=== PATIENT | female | born 1985 | race Caucasian/White ===

== ENCOUNTER → 2021-03-10 08:06 | Outpatient (CLI) | payer OTHER, SELFPAY ==
[2021-03-10 19:22] LABS: SARS-CoV-2 RNA PCR Negative
== END ==
PROVIDERS: PCP Family Medicine; Visit Provider Internal Medicine Gastroenterology
DX: Z01.812 Encounter for preprocedural laboratory examination (principal); Z20.822 Contact with and (suspected) exposure to COVID-19
CPT/HCPCS: C9803; U0003; U0005

== ENCOUNTER 2021-03-13 00:26 | Day surgery (SDC) | payer OTHER, SELFPAY ==
[2021-03-01 15:54] VITALS: BMI 19.8
--- NOTE | 2021-03-13 07:34 | PM.HPGS ---
History of Present Illness History of Present Illness Consent: Risks, benefits, and alternatives have been discussed and questions answered. Patient agrees to proceed with procedure. Chief complaint: dysphagia, gerd Narrative: Bel Amaya is a 36 year old female with chronic intermittent nausea. Also recently she is noticing difficulty swallowing solid food. She will need to take a drink of water to help it go down. He at times she feels the need to burp and extends her chest to alleviated. There is no weight loss. Review of Systems Review of Systems: All systems reviewed & are unremarkable except as noted in HPI and below PMFSH Past Medical History Medical History Renal calculus, right Tachycardia Family History Family History Grandparent Hypertension Carcinoma of colon Family history of malignant neoplasm of breast Mother Family history of malignant neoplasm of cervix Social History Social History Smoking status: Never smoker Alcohol intake: never Living arrangements: with family Gender identity (if verbalized by the patient): Female Meds Home Medications and Allergies Home Medications Medication Instructions Recorded Confirmed Type multivitamin 1 tablet PO DAILY 09/01/19 03/01/21 History Allergies Allergy/AdvReac Type Severity Reaction Status Date / Time No Known Allergies Allergy Verified 03/13/21 07:41 Exam Const: General: alert Orientation/consciousness: patient oriented x3 Resp: Auscultation: clear to auscultation bilaterally Cardio: Rhythm: regular rhythm GI: GI Palp: Yes Soft to palpation and No Tenderness to palpation present (GI) Neuro: General: patient oriented x3 Assessment and Plan Assessment and plan (1) Dysphagia: Code(s): R13.10 - Dysphagia, unspecified Status: Acute Assessment and Plan: EGD with possible biopsy or dilatation or cautery.
--- NOTE | 2021-03-13 07:36 | P.PNAN_ITS ---
Anes - Initial Pre Proc Eval Procedure: Operation Date: 03/13/21 08:30 Proposed Procedures p Esophagogastroduodenoscopy - Nazario Naranjo MD Date/Time: 03/13/21 07:36 Surgeon: Nazario Naranjo MD Pre Op Diagnosis: dysphagia, gerd Patient Data Age: 36 Gender: F Height: 5 ft 5 in Weight: 54 kg Allergies Allergy/AdvReac Type Severity Reaction Status Date / Time No Known Allergies Allergy Verified 09/03/19 07:35 Home Medications Medication Instructions Recorded Confirmed Type multivitamin 1 tablet PO DAILY 09/01/19 03/01/21 History Patient hx anesthesia problems: none Family hx anesthesia problems: none [facility] Past Medical History Medical History (Updated 03/13/21 @ 07:39 by Juan Joy MD) Renal calculus, right Tachycardia Family History Family History Grandparent Hypertension Carcinoma of colon Family history of malignant neoplasm of breast Mother Family history of malignant neoplasm of cervix Social History Social History Smoking status: Never smoker Alcohol intake: never Living arrangements: with family Gender identity (if verbalized by the patient): Female Anes - Eval Final PreProcedure Day of Procedure 03/13/21 07:36 Patient weight: normal Heart: regular rate and rhythm Lungs: clear to auscultation Airway: Mallampati scale class 1 Neurological: alert and oriented Last oral intake: >/= 8 hours ASA classification: II Emergent: no Anesthetic plan: proceed Anesthesia type and monitoring: general Informed Consent: The patient's anesthetic plan and its attendant risks and benefits were discussed with the patient/family/POA. Questions were solicited and answers provided to the satisfaction of the patient/family/POA.
[2021-03-13 07:42] VITALS: BP 88/40; PULSE 76; RESP 20; TEMP 36.4; O2SAT 100; BMI 19.8
[2021-03-13] MEDS: LACTATED RINGERS 1,000 ML 150 ML IV CONT (07:52)
--- NOTE | 2021-03-13 08:08 | SUR.OPER ---
18-20 mm balloon lot [id number], exp 12/13/2022)
[2021-03-13 08:12] VITALS: BP 87/51; PULSE 84; RESP 12; O2SAT 99
[2021-03-13 08:22] VITALS: BP 84/52; PULSE 83; RESP 21; O2SAT 100
== END 2021-03-13 09:25 | disposition home or self-care (01) ==
PROVIDERS: PCP Family Medicine; Visit Provider Internal Medicine Gastroenterology
PROC: 0DJ08ZZ Inspection of Upper Intestinal Tract, Via Natural or Artificial Opening Endoscopic (ICD-10-PCS; CPT 43235; principal; 2021-03-13 08:30)
DX: R13.10 Dysphagia, unspecified (principal); K22.2 Esophageal obstruction; K21.9 Gastro-esophageal reflux disease without esophagitis; Z87.442 Personal history of urinary calculi; Z80.0 Family history of malignant neoplasm of digestive organs; Z80.3 Family history of malignant neoplasm of breast
CPT/HCPCS: 43239; 43249; 87081; 88305; J2001; J2704; J7120

== ENCOUNTER 2021-07-17 15:34 | Outpatient (CLI) | payer OTHER, SELFPAY ==
[2021-07-17 16:20] LABS: Add Urine Microscopic? NO; Appearance Urine Clear (Clear); Bilirubin Urine Negative (Negative); Blood Urine Negative (Negative); Color Urine Colorless (Yellow); Glucose Urine UA Negative (Negative); Ketones Urine Negative (Negative); Leukocyte Esterase Ur Negative LEU/UL (Negative); Nitrate Urine Negative (Negative); Protein Urine Negative (Negative); Urobilinogen Urine Negative mg/dL (<2.0)
[2021-07-17 16:34] LABS: Specific Grav Ur 1.004 (1.001-1.035)
== END 2021-07-17 15:35 | disposition home or self-care (01) ==
LOC: ANHLAB 15:38
PROVIDERS: PCP Family Medicine; Visit Provider Obstetrics & Gynecology
DX: R10.2 Pelvic and perineal pain (principal)
CPT/HCPCS: 81003

== ENCOUNTER 2021-08-04 15:22 | Outpatient (CLI) | payer OTHER, SELFPAY ==
--- NOTE | ~2021-08-04 | US_ITS ---
EXAMINATION: US pelvic complete w TV DATE: 08/04/2021 16:28 INDICATION: Pelvic pain. Urinary frequency. TECHNIQUE: Multiple transabdominal and transvaginal sonographic images of the pelvis were obtained. COMPARISON: None. FINDINGS: TRANSABDOMINAL ULTRASOUND: The uterus measures 8.0 x 5.7 x 4.6 cm. There is no free fluid in the pelvis. The prevoid bladder vol ume is 192 mL. The post void bladder volume is 14 mL. TRANSVAGINAL ULTRASOUND: The endometrial complex measures 4 mm in thickness. There are nabothian cysts in the cervix. The righ t ovary measures 2.0 x 1.3 x 0.7 cm. The left ovary measures 3.0 x 1.6 x 1.4 cm. IMPRESSION: 1. No etiology for the patient's symptoms. Reviewed, dictated and finalized at location A.
== END 2021-08-04 15:23 | disposition home or self-care (01) ==
LOC: ANHIMG 15:24
PROVIDERS: PCP Family Medicine; Visit Provider Family Medicine
DX: R35.0 Frequency of micturition (principal); N39.3 Stress incontinence (female) (male); Z87.42 Personal history of other diseases of the female genital tract; R10.2 Pelvic and perineal pain
CPT/HCPCS: 76830; 76856

== ENCOUNTER 2021-10-11 07:39 | Outpatient (CLI) | payer OTHER, SELFPAY ==
[2021-10-11 08:52] LABS: Alanine Aminotransferase 26 U/L (4-35); Albumin Level 4.5 g/dL (3.5-5.1); Alkaline Phosphatase 65 U/L (38-126); Anion Gap 7 mmol/L (8-16); Aspartate Amino Transferase 29 U/L (14-36); Bilirubin,Total 0.7 mg/dL (0.2-1.3); Blood Urea Nitrogen 14 mg/dL (7-17); Calcium 9.1 mg/dL (8.4-10.2); Carbon Dioxide 27 mmol/L (22-30); Chloride 100 mmol/L (98-107); Estimated Glomerular Filt Rate > 60; Glucose 95 mg/dL (65-110); Potassium 3.7 mmol/L (3.4-5.0); Sodium 134 mmol/L (137-145)
[2021-10-11 08:54] LABS: Add Urine Microscopic? NO; Appearance Urine Clear (Clear); Bilirubin Urine Negative (Negative); Blood Urine Negative (Negative); Color Urine Colorless (Yellow); Glucose Urine UA Negative (Negative); Ketones Urine Negative (Negative); Leukocyte Esterase Ur Negative LEU/UL (NEGATIVE); Nitrate Urine Negative (Negative); Protein Urine Negative (Negative); Urobilinogen Urine Negative mg/dL (<2.0)
[2021-10-11 09:03] LABS: Specific Grav Ur 1.002 (1.001-1.035)
[2021-10-11 09:52] LABS: Free T4 Free Thyroxine 1.13 ng/mL (0.78-2.19); Vitamin D 25 Hydroxy 47.6 ng/mL
[2021-10-13 05:35] LABS: DHEA-Sulfate 284 mcg/dL (23-266); Sex Hormone Binding Globulin 77 nmol/L (17-124); Thyroid Peroxidase Antibodies 1 IU/mL (<9)
[2021-10-14 03:43] LABS: Osmolality, Urine 115 mOsm/kg (50-1200)
[2021-10-14 06:59] LABS: Progesterone 0.6 ng/mL (***)
[2021-10-16 13:23] LABS: Testosterone Free 2.6 pg/mL (0.1-6.4); Testosterone Total 32 ng/dL (2-45)
== END 2021-10-11 07:40 | disposition home or self-care (01) ==
PROVIDERS: PCP Family Medicine; Visit Provider Internal Medicine Endocrinology, Diabetes & Metabolism
DX: R53.81 Other malaise (principal); R53.83 Other fatigue; E55.9 Vitamin D deficiency, unspecified; N92.6 Irregular menstruation, unspecified
CPT/HCPCS: 36415; 80053; 81003; 82306; 82607; 82627; 82746; 83498; 83930; 83935; 84144; 84270; 84402; 84403; 84439; 84443; 86376

== ENCOUNTER 2023-06-25 10:41 | Outpatient (CLI) | payer OTHER, SELFPAY ==
[2023-06-25 19:32] LABS: Creatine Kinase 42 U/L (30-135); Magnesium 2.4 mg/dL (1.6-2.3)
[2023-06-25 19:35] LABS: Free T4 Free Thyroxine 1.22 ng/mL (0.78-2.19)
[2023-06-25 20:02] LABS: Thyroid Stimulating Hormone 0.799 uIU/mL (0.465-4.680)
[2023-06-27 22:28] LABS: Cyclic Citrullinated Peptide <16 Units (<20)
[2023-06-28 02:50] LABS: Thyroid Peroxidase Antibodies <1 IU/mL (<9)
[2023-06-28 04:39] LABS: Triiodothyronine T3 Free 3.2 pg/mL (2.3-4.2)
[2023-06-29 04:27] LABS: Anti Nuclear Antibody Pattern Nuclear, Speckled
== END 2023-06-25 10:42 | disposition home or self-care (01) ==
LOC: ANHGOSHLAB 10:43
PROVIDERS: Visit Provider Family Medicine
DX: M25.50 Pain in unspecified joint (principal); R53.83 Other fatigue; R76.8 Other specified abnormal immunological findings in serum
CPT/HCPCS: 36415; 82550; 82607; 83735; 84439; 84443; 84481; 86038; 86039; 86200; 86225; 86376

== ENCOUNTER → 2023-06-25 13:09 | Outpatient (CLI) | payer OTHER, SELFPAY ==
--- NOTE | ~2023-06-25 | MR_ITS ---
EXAMINATION: MR lumbar spine wo con DATE: 06/25/2023 13:38 INDICATION: Low back pain, unspecified. TECHNIQUE: Magnetic resonance imaging (MRI) of the lumbar spine was performed without intravenous con trast. Sequences included sagittal T2-weighted FSE, sagittal T2-weighted FS FSE, sagittal T1-weighted FSE, and axial T2-weighted FSE. COMPARISON: Lumbar spine radiographs 05/09/2022 FINDINGS: There is 7 degrees dextrocurvature of lumbar spine. Vertebral body heights are normal. Inte rvertebral disc heights are normal. The distal spinal cord signal intensity is normal. The conus medu llaris is at L1. The following disc levels are specifically discussed: L1-L2: The disc does not extend beyond the endplate margin. There is no facet joint osteoarthritis. T here is no neural foraminal stenosis. There is no central canal stenosis. L2-L3: The disc does not extend beyond the endplate margin. There is no facet joint osteoarthritis. T here is no neural foraminal stenosis. There is no central canal stenosis. L3-L4: The disc does not extend beyond the endplate margin. There is no facet joint osteoarthritis. T here is no neural foraminal stenosis. There is no central canal stenosis. L4-L5: The disc is mildly bulging. There is mild bilateral facet joint osteoarthritis. There is mild bilateral neural foraminal stenosis. There is no central canal stenosis. L5-S1: The disc does not extend beyond the endplate margin. There is mild bilateral facet joint osteo arthritis. There is no neural foraminal stenosis. There is no central canal stenosis. IMPRESSION: 1. Mild lumbar spondylosis. Reviewed, dictated and finalized at location A. IMPRESSION: 1. Mild lumbar spondylosis.
== END ==
PROVIDERS: PCP Family Medicine; Visit Provider Orthopaedic Surgery
DX: M47.896 Other spondylosis, lumbar region (principal)
CPT/HCPCS: 72148

== ENCOUNTER → 2023-07-18 08:17 | Outpatient (CLI) | payer OTHER, SELFPAY ==
--- NOTE | ~2023-07-18 | MR_ITS ---
EXAMINATION: MR brain/brain stem wo/w con DATE: 07/18/2023 09:42 CDT INDICATION: Joint pain, fatigue and muscle weakness. TECHNIQUE: Magnetic resonance imaging (MRI) of the brain and brainstem was performed without and with 10 cc MultiHance intravenous contrast. Sequences included sagittal and axial T1-weighted SE, axial d iffusion-weighted FS SE, axial T2*-weighted GRE, axial T2-weighted FLAIR Propeller, and axial T2-weig hted Propeller. Apparent diffusion coefficient (ADC) maps were created. COMPARISON: No prior studies for comparison. FINDINGS: The brain volume and ventricular system are within normal limits. The brain parenchymal si gnal intensity pattern and xavier/white matter is normal and there is no evidence of hemorrhage, space occupying masses or infarctions. The flow signal voids of the major arterial structures about the [place] and within the olivia r dural venous sinuses appear grossly unremarkable and patent. The seventh and eighth cranial nerve complexes are normal. The mid sagittal image demonstrates a normal craniovertebral junction and lalit us callosum. The paranasal sinuses are grossly unremarkable. No abnormal contrast enhancement was appreciated. IMPRESSION: 1: Normal MRI of the brain. Reviewed, dictated and finalized at location L. IMPRESSION: 1: Normal MRI of the brain.
--- NOTE | ~2023-07-18 | MR_ITS ---
MRI of the cervical spine Clinical History: Fatigue, weakness Technique: Axial T2-weighted and gradient images, and sagittal T1-weighted, T2-weighted, and STIR cassidy ges were acquired. Findings: There is no fracture or subluxation of the cervical spine. There is diffuse T1 hypointensit y throughout the osseous structures. No focal bone marrow signal abnormality seen. At C2-C3, there is no disc bulge or herniation. No spinal canal stenosis, cord compression, or neural foraminal narrowing. At C3-C4, there is no disc bulge or herniation. No spinal canal stenosis, cord compression, or neural foraminal narrowing. At C4-C5, there is minimal disc bulge. No spinal canal stenosis, cord compression, or right neural fo raminal narrowing. Probable mild left neural foraminal narrowing. At C5-C6, there is mild disc bulge. No spinal canal stenosis, cord compression, or definite neural fo raminal narrowing. At C6-C7, there is no disc bulge or herniation. No spinal canal stenosis, cord compression, or neural foraminal narrowing. No abnormal signal seen in the spinal cord. Paravertebral soft tissues are unremarkable. Impression: Mild diffuse T1 hypointense marrow signal, which could be related to red marrow conversion/underlying anemia. Minimal degenerative spondylosis at C4-C5, as detailed above. Reviewed, dictated and finalized at [facility]. Impression: Mild diffuse T1 hypointense marrow signal, which could be related to red marrow conversion/underlying anemia. Minimal degenerative spondylosis at C4-C5, as detailed above.
== END ==
PROVIDERS: PCP Family Medicine; Visit Provider Family Medicine
DX: R53.83 Other fatigue (principal); H53.8 Other visual disturbances; M25.50 Pain in unspecified joint; R76.8 Other specified abnormal immunological findings in serum; M62.81 Muscle weakness (generalized); R20.8 Other disturbances of skin sensation; R20.2 Paresthesia of skin; R29.818 Other symptoms and signs involving the nervous system; M54.2 Cervicalgia; M47.812 Spondylosis without myelopathy or radiculopathy, cervical region
CPT/HCPCS: 70553; 72141; A9577

== ENCOUNTER 2025-03-08 14:50 | Outpatient (CLI) | payer BC, SELFPAY ==
--- NOTE | ~2025-03-08 | MM_ITS ---
EXAMINATION: MM screening roselia BI w alexia HISTORY: Screening TECHNIQUE: Craniocaudal and mediolateral oblique 3-D tomosynthesis images were obtained and synthetic 2-D images were generated. CAD analysis was submitted and interpreted. COMPARISON: No prior mammogram is available for comparison at this institution. BREAST PARENCHYMAL COMPOSITION: Dense: The breasts are extremely dense, which lowers the sensitivity of mammography. FINDINGS: There is no evidence of suspicious mass, calcification, or architectural distortion to sugg est malignancy in either breast. There has been no suspicious interval change. IMPRESSION: 1. No mammographic evidence of malignancy. 2. Recommend routine screening mammography in one year. BI-RADS Category 1: Negative Reviewed, dictated and finalized at location B.
--- OUTSIDE RECORDS SUMMARY | 2025-03-08 14:53 | XMS_ITS ---
Author Organization [facility] Address [address] [place], [place] [id number] Care Team Providers Care Database Management Specialist Name Role Phone EMMA ESPARZA Primary Care Provider Neeru Drew Unavailable [phone] Encounters Encounter Location Date Provider Diagnosis [facility] [address], [address] [place], [place] [id number] 06/25/2024 Neeru Medeiros PLAN OF TREATMENT Next Appt Details Provider Name:Neeru grijalva, 05/24/2025 10:40:00 AM, [address] [facility], [address], [place], [place], [id number],
--- OUTSIDE RECORDS SUMMARY | 2025-03-08 14:53 | XMS_ITS ---
Author Organization [facility] Address [address] [place], [place] [id number] Care Team Providers Care Financial Planning Advisor Name Role Phone MARIUSZ ESPARZASEY Primary Care Provider Neeru Drew Unavailable [phone] ALLERGIES No Known Allergies REASON FOR VISIT Reg sched f/u MEDICATIONS Medication SIG (Take, Route, Frequency, Duration) Notes Start Date End Date Status Melatonin Not-Taking Hydroxychloroquine Sulfate 200 mg 1 tab(s) orally once a day Active Fish Oil Active gabapentin 100 mg 1 cap(s) orally 3 times a day Active VITAL SIGNS BMI 20.17 kg/m2 09/25/2024 Blood pressure systolic 126 mm Hg 09/25/20 24 Blood pressure diastolic 84 mm Hg 024 Heart Rate 86 /min 09/25/2024 Height 66 in 09/25/2024 Weight 125 lbs 09/25/2024 Encounters Encounter Location Date Provider Diagnosis [facility] [address] [place], [place] [phone] 09/25/2024 Neeru Medeiros JURGEN positive R76.8 ; Rash R21 ; Myalgia M79.10 and [facility] (current) drug therapy Z79.899 ASSESSMENTS Encounter Date Diagnosis Assessment Notes Treatment Notes Treatment Clinical Notes 09/25/2024 JURGEN positive (ICD-10 - R76.8) 09/25/2024 Rash (ICD-10 - R21) 09/25/2024 Myalgia (ICD-10 - M79.10) 09/25/2024 [facility] jail (current) drug therapy (ICD-10 - Z79.899) PLAN OF TREATMENT Medication Medication Name Sig Start Date Stop Date Notes Hydroxychloroquine Sulfate 200 mg 1 tab( s) orally once a day Fish Oil gabapentin 100 mg 1 cap(s) orally 3 ti mes a day Next Appt Details Follow Up: 4 Months Corrine, Reason: Provider Name:Neeru grijalva, 05/24/2025 10:40:00 AM, [address] [facility], [address], [place], [place], [id number], Progress Notes * Examination Category Sub-Category Detail Notes Rheumatology Cervical Spine normal range of motion Lumbar spine: normal forward and l ateral bending Thoracic Spine: normal Sacroiliac: normal Fibromyalgia Tender Points: none General Constitutional: No acute distres s HEENT: PERRLA, Neck supple, Normal sclerae and conjunctivae Cardiovascular RSR, No murmurs, Nor mal peripheral pulsations, No edema Lungs: clear to ausculation Abdomen: soft, no organomegal y or masses /Rectal: not done Skin: No cutaneous lesions . No subcutaneous nodules noted in the 4 extremities Neurological: No focal neurologica l findings Heme/Lymphatic: No cervical, axillar y, or inguinal adenopathy Psych: Alert, oriented x 3, Normal affect Musculoskeletal: Normal strength. No muscle atrophy Joint Exam Shoulders No swelling. No tenderness. NROM. Elbows No swelling. No tend erness. NROM. Wrists No swelling. No tend erness. NROM. Hips No tenderness, tyler l ROM, no instability or deformity Knees No swelling, no tend erness, NROM. No instability or deformity Ankles No swelling, no tend erness, NROM., No instability or deformity. All MCPs No swelling, no tend erness, no deformity unless noted below. All PIPs No swelling, no tend erness, no deformity unless noted below. All DIPs No swelling, no tend erness, no deformity unless noted below. All MTPs No swelling, no tend erness, NROM, no deformity unless noted below. History and Physical Notes * HPI (History of Present Illness) Category Sub-Category Detail Notes Rheumatology Joint pain Joint swelling Fever Dyspnea/SOB Cough Lymphadenopathy Chills fatigue morning stiffness 1 hour myalgias infection dry eyes dry mouth Raynaud's/ dicoloration of fingers muscle weakness digital ulcerations rash dysphagia photosensitivity Back pain History of gout Headaches Psoriasis Oral sores Iritis, conjuctivitis, uveiitis tendinitis Numbness or tingling Family History of Rheumatic Disease Alopecia chest pain Physical Examination Category Sub-Category Detail Notes MDHAQ Summary Function (0-10):: PATIENT DID NO T COMPLETE Pain (0-10):: PATIENT DID NOT COMPLETE Patient Global Assessment of Disease Activity (0-10):: PATIENT DID NOT COMPLETE RAPID3 Score (0-30):: COULD NOT SCORE PATIENT DID NOT COMPLETE ALL CATEGORIES Prognosis Very Good w/tx Erosive Damage No
--- OUTSIDE RECORDS SUMMARY | 2025-03-08 14:54 | XMS_ITS | Patient Health Record ---
Author Organization [employer] Address [address] [facility]on [facility] [address] [place], [place] [id number] Care Team Providers Care Accounts Receivable Clerk Name Role Phone EMMA ESPARZA Primary Care Provider Neeru Drew Unavailable [phone] RikyCorrine english Unavailable ALLERGIES No Known Allergies RESULTS Component Value Reference Range Notes AST (SGOT) Reviewed date:06/12/2024 11:38:18 AM Interpretation: Performing Lab:[facility] [place], [address] [facility], Phone - [phone], Director - Janet Notes/Report: Test(s) 701335-Qfln-VO-1 Ab (RDL); 004919-Nyhb-FP-64 Ab (RDL); 821598-Ftjc-BZ Ab (RDL); 512821-Lwrh-GO Ab (RDL); 307847- Anti-SRP Ab (RDL); 888052-Iyhl-Ke-0 Ab (RDL); 006964- Mhwv-SMG-9ekcor Ab (RDL); 506522-Ptau-ELT-2 Ab (CADM-140)(RDL); 489674-Grkn-KIB-8 (P140) Ab (RDL); 684839-Nmya-AL/Scl-100 Ab (RDL); 469994-Wyut-Cy Ab (RDL); 535934-Npgw-BZ-V 52kD Ab, IgG (RDL); 110649- Anti-U2 PAID INTERNSHIP Ab (RDL); 176280-Jdgo-N7 PAID INTERNSHIP (Fibrillarin)(RDL) was developed and its performance characteristics determined by [facility] [employer]. It has not been cleared or approved by the Food and Drug Administration. AST (SGOT) 14 0-40 IU/L CPK Total,Serum Reviewed date:06/12/2024 11:38:18 AM Interpretation: Performing Lab:[facility] [place], [address] [facility], Phone - [phone], Director - [facility] Notes/Report: Test(s) 757763-Ftft-OO-5 Ab (RDL); 837782-Jadc-FG-28 Ab (RDL); 771659-Muky-AK Ab (RDL); 375837-Xegu-DN Ab (RDL); 875784- Anti-SRP Ab (RDL); 000058-Ijpu-Il-2 Ab (RDL); 470535- Dcjm-FHJ-0liedt Ab (RDL); 409513-Andv-HYX-5 Ab (CADM-140)(RDL); 968717-Bxxx-DAQ-9 (P140) Ab (RDL); 907208-Xmlc-NH/Scl-100 Ab (RDL); 504486-Ikuo-Oj Ab (RDL); 135807-Qxnv-CR-Z 52kD Ab, IgG (RDL); 692817- Anti-U2 PAID INTERNSHIP Ab (RDL); 243424-Zegi-G0 PAID INTERNSHIP (Fibrillarin)(RDL) was developed and its performance characteristics determined by [facility]. It has not been cleared or approved by the Food and Drug Administration. Creatine Kinase,Total 42 32-182 U/L Creatinine, Serum Reviewed date:06/12/2024 11:38:18 AM Interpretation: Performing Lab:[facility] [place], [address] [facility], [place], Phone - [phone], Director - [facility] Notes/Report: Test(s) 301251-Pxio-BD-5 Ab (RDL); 875144-Kvre-YI-75 Ab (RDL); 411023-Wkvd-YM Ab (RDL); 183099-Yhux-PG Ab (RDL); 170862- Anti-SRP Ab (RDL); 449313-Vnbl-Ff-4 Ab (RDL); 090314- Xfnz-GRY-2vobyj Ab (RDL); 890290-Askf-FVL-9 Ab (CADM-140)(RDL); 480390-Ikpm-APT-0 (P140) Ab (RDL); 997910-Xpxz-JL/Scl-100 Ab (RDL); 401710-Ppqy-Zx Ab (RDL); 345889-Kjls-ZA-V 52kD Ab, IgG (RDL); 759039- Anti-U2 PAID INTERNSHIP Ab (RDL); 282169-Awid-T8 PAID INTERNSHIP (Fibrillarin)(RDL) was developed and its performance characteristics determined by [facility]. It has not been cleared or approved by the Food and Drug Administration. Creatinine 0.68 0.57-1.00 mg/dL eGFR 114 >59 mL/min/1.73 ALT (SGPT) Reviewed date:06/12/2024 11:38:18 AM Interpretation: Performing Lab:[facility], [address] [place] [address], [place], Phone - [phone], Director - Janet Notes/Report: Test(s) 543583-Cwgt-WN-2 Ab (RDL); 109471-Ximq-SE-53 Ab (RDL); 563115-Mbta-IM Ab (RDL); 481997-Gzqz-WD Ab (RDL); 035127- Anti-SRP Ab (RDL); 741701-Wcze-Hb-9 Ab (RDL); 701453- Xnpr-MAL-4keell Ab (RDL); 523731-Hyys-VHO-0 Ab (CADM-140)(RDL); 172640-Iwrq-NBI-1 (P140) Ab (RDL); 047709-Dlfp-ZG/Scl-100 Ab (RDL); 710405-Mlzu-It Ab (RDL); 969413-Czhx-FE-X 52kD Ab, IgG (RDL); 635184- Anti-U2 PAID INTERNSHIP Ab (RDL); 578869-Oylr-L0 PAID INTERNSHIP (Fibrillarin)(RDL) was developed and its performance characteristics determined by [facility]. It has not been cleared or approved by the Food and Drug Administration. ALT (SGPT) 8 0-32 IU/L Complement C4, Serum Reviewed date:06/12/2024 11:38:18 AM Interpretation: Performing Lab:[facility], [address] [facility], Phone - [phone], Director - [facility] Notes/Report: Test(s) 759990-Rqxe-IU-5 Ab (RDL); 874262-Zwnb-WW-40 Ab (RDL); 169245-Pjfa-KV Ab (RDL); 957083-Lhpl-KD Ab (RDL); 325808- Anti-SRP Ab (RDL); 836476-Rncu-Um-1 Ab (RDL); 431898- Ztye-QUL-2yvutl Ab (RDL); 014315-Bafi-BFH-1 Ab (CADM-140)(RDL); 390805-Vecq-GNL-4 (P140) Ab (RDL); 941048-Yegq-EU/Scl-100 Ab (RDL); 234484-Zzhn-Vx Ab (RDL); 090662-Ahga-HS-H 52kD Ab, IgG (RDL); 763167- Anti-U2 PAID INTERNSHIP Ab (RDL); 414899-Lsbj-X6 PAID INTERNSHIP (Fibrillarin)(RDL) was developed and its performance characteristics determined by [facility]. It has not been cleared or approved by the Food and Drug Administration. Complement C4, Serum 24 12-38 mg/dL Aldolase Reviewed date:06/12/2024 11:38:18 AM Interpretation: Performing Lab:[facility], [address] [facility], Phone - [phone], Director - [facility] Notes/Report: Test(s) 588042-Yaxj-ZJ-3 Ab (RDL); 585321-Snlq-HO-32 Ab (RDL); 819908-Auqt-WX Ab (RDL); 258750-Knjx-XM Ab (RDL); 030756- Anti-SRP Ab (RDL); 203870-Gfsl-Up-8 Ab (RDL); 653271- Unwz-DQJ-3ajfys Ab (RDL); 211646-Kdfm-UZZ-3 Ab (CADM-140)(RDL); 112791-Eluu-HLN-5 (P140) Ab (RDL); 907560-Byqp-XI/Scl-100 Ab (RDL); 017416-Dcud-Jl Ab (RDL); 709248-Ukki-PE-D 52kD Ab, IgG (RDL); 964722- Anti-U2 PAID INTERNSHIP Ab (RDL); 897636-Ksyz-C0 PAID INTERNSHIP (Fibrillarin)(RDL) was developed and its performance characteristics determined by [facility]. It has not been cleared or approved by the Food and Drug Administration. Aldolase 3.1 3.3-10.3 U/L CBC With Differential/Platel et Reviewed date:06/12/2024 11:38:18 AM Interpretation: Performing Lab:[facility], [address] [place] [address], Phone - [phone], Director - Janet Notes/Report: Test(s) 030312-Qnjm-LX-6 Ab (RDL); 926148-Xnsq-GX-93 Ab (RDL); 902067-Fvoi-XY Ab (RDL); 310669-Nvtc-KV Ab (RDL); 527187- Anti-SRP Ab (RDL); 487603-Jmla-Fe-0 Ab (RDL); 854981- Vdvr-GAP-6aqhqb Ab (RDL); 888361-Mtcn-RLZ-5 Ab (CADM-140)(RDL); 883098-Teey-XSR-9 (P140) Ab (RDL); 766136-Etbd-AP/Scl-100 Ab (RDL); 171059-Hdww-Ta Ab (RDL); 771754-Voll-NQ-B 52kD Ab, IgG (RDL); 422483- Anti-U2 PAID INTERNSHIP Ab (RDL); 819781-Xyet-S5 PAID INTERNSHIP (Fibrillarin)(RDL) was developed and its performance characteristics determined by [facility]. It has not been cleared or approved by the Food and Drug Administration. WBC 5.5 3.4-10.8 x10E3/uL RBC 4.14 3.77-5.28 x10E6/uL Hemoglobin 13.1 11.1-15.9 g/dL Hematocrit 38.9 34.0-46.6 % MCV 94 79-97 fL MCH 31.6 26.6-33.0 pg MCHC 33.7 31.5-35.7 g/dL RDW 12.5 11.7-15.4 % Platelets 226 150-450 x10E3/uL Neutrophils 56 Not Estab. % Lymphs 32 Not Estab. % Monocytes 10 Not Estab. % Eos 1 Not Estab. % Basos 1 Not Estab. % Immature Cells Neutrophils (Absolute) 3.1 1.4-7.0 x10E3/uL Lymphs (Absolute) 1.8 0.7-3.1 x10E3/uL Monocytes(Absolute) 0.6 0.1-0.9 x10E3/uL Eos (Absolute) 0.1 0.0-0.4 x10E3/uL Baso (Absolute) 0.1 0.0-0.2 x10E3/uL Immature Granulocytes 0 Not Estab. % Immature Grans (Abs) 0.0 0.0-0.1 x10E3/uL NRBC Hematology Comments: Barrera Hoover Reviewed date:06/12/2024 11:38:18 AM Interpretation: Performing Lab:[facility] [place], [address] [facility], [place], Phone - [phone], Director - Janet Notes/Report: Test(s) 613466-Stff-VV-0 Ab (RDL); 592518-Ljbl-KL-18 Ab (RDL); 127427-Myme-FC Ab (RDL); 287936-Yzyy-YH Ab (RDL); 157358- Anti-SRP Ab (RDL); 114015-Slma-Lp-2 Ab (RDL); 868400- Xxtl-OVD-3hhlpl Ab (RDL); 796230-Xpbl-BFP-3 Ab (CADM-140)(RDL); 573004-Nwpi-XMF-0 (P140) Ab (RDL); 067084-Lwtb-IE/Scl-100 Ab (RDL); 919587-Nmwn-Kw Ab (RDL); 927577-Abze-JP-B 52kD Ab, IgG (RDL); 671696- Anti-U2 PAID INTERNSHIP Ab (RDL); 623700-Vhcq-G4 PAID INTERNSHIP (Fibrillarin)(RDL) was developed and its performance characteristics determined by [facility]. It has not been cleared or approved by the Food and Drug Administration. Sedimentation Rate-Westergren 5 0-32 mm/hr Complement C3, Serum Reviewed date:06/12/2024 11:38:18 AM Interpretation: Performing Lab:[facility] [place], [address] [facility], Phone - [phone], Director - [facility] Notes/Report: Test(s) 338974-Nwqf-RF-5 Ab (RDL); 389810-Diyw-TP-82 Ab (RDL); 853631-Llzq-NL Ab (RDL); 074108-Nhaz-OJ Ab (RDL); 361391- Anti-SRP Ab (RDL); 102125-Hwgk-Vj-8 Ab (RDL); 090573- Ogip-IDL-7ryrcc Ab (RDL); 015360-Yjur-IOT-8 Ab (CADM-140)(RDL); 151276-Ghhm-LDT-5 (P140) Ab (RDL); 536840-Isax-SR/Scl-100 Ab (RDL); 619642-Bayx-Od Ab (RDL); 878323-Kkhl-OV-J 52kD Ab, IgG (RDL); 801927- Anti-U2 PAID INTERNSHIP Ab (RDL); 736013-Cvgl-P5 PAID INTERNSHIP (Fibrillarin)(RDL) was developed and its performance characteristics determined by [facility]. It has not been cleared or approved by the Food and Drug Administration. Complement C3, Serum 115 82-167 mg/dL Rheumatoid Arthritis Factor Reviewed date:06/12/2024 11:38:18 AM Interpretation: Performing Lab:[facility] [place], [address] [facility], [place], Phone - [phone], Director - [facility] Notes/Report: Test(s) 863859-Yvfk-OV-7 Ab (RDL); 334194-Cvmq-BT-44 Ab (RDL); 264451-Krmy-GB Ab (RDL); 067110-Ouyq-GD Ab (RDL); 954111- Anti-SRP Ab (RDL); 252238-Glrd-Cp-6 Ab (RDL); 580686- Ywfz-LYK-3wdyfh Ab (RDL); 199913-Wkyv-ZNI-0 Ab (CADM-140)(RDL); 623779-Bdcq-ERI-3 (P140) Ab (RDL); 037910-Nxvb-YY/Scl-100 Ab (RDL); 418554-Vibu-Nq Ab (RDL); 303569-Hfap-AZ-Z 52kD Ab, IgG (RDL); 323211- Anti-U2 PAID INTERNSHIP Ab (RDL); 012004-Zwvg-I6 PAID INTERNSHIP (Fibrillarin)(RDL) was developed and its performance characteristics determined by [facility]. It has not been cleared or approved by the Food and Drug Administration. Rheumatoid Factor (RF) <10.0 <14.0 IU/mL C-Reactive Protein, Quant Reviewed date:06/12/2024 11:38:18 AM Interpretation: Performing Lab:[facility], [address] [place] [address], [place], Phone - [phone], Director - Janet Notes/Report: Test(s) 703907-Uekc-II-6 Ab (RDL); 123525-Wbcu-WX-09 Ab (RDL); 591183-Kukq-BU Ab (RDL); 450080-Abcm-EW Ab (RDL); 163484- Anti-SRP Ab (RDL); 255705-Cweq-Jo-8 Ab (RDL); 743821- Wpux-SLU-7ddugv Ab (RDL); 824856-Qcql-LLX-8 Ab (CADM-140)(RDL); 860223-Oxva-FVP-3 (P140) Ab (RDL); 282502-Ztrj-HD/Scl-100 Ab (RDL); 725545-Rknn-Ct Ab (RDL); 382496-Mebw-QJ-D 52kD Ab, IgG (RDL); 992261- Anti-U2 PAID INTERNSHIP Ab (RDL); 703354-Rfvi-H9 PAID INTERNSHIP (Fibrillarin)(RDL) was developed and its performance characteristics determined by [facility]. It has not been cleared or approved by the Food and Drug Administration. C-Reactive Protein, Quant <1 0-10 mg/L CARLITOS,transfer serum,rm temp Reviewed date:06/12/2024 11:38:18 AM Interpretation: Performing Lab:[facility], [address] [facility], Phone - [phone], Director - [facility] Notes/Report: Test(s) 949401-Joqa-YH-5 Ab (RDL); 288856-Mfit-MB-93 Ab (RDL); 834575-Cxvf-WH Ab (RDL); 253762-Lpsf-YI Ab (RDL); 538705- Anti-SRP Ab (RDL); 320689-Aaca-Ov-7 Ab (RDL); 828867- Qsha-IYL-9fdaof Ab (RDL); 371036-Pyfe-CNR-8 Ab (CADM-140)(RDL); 502768-Neuy-BCH-0 (P140) Ab (RDL); 429740-Gqej-TO/Scl-100 Ab (RDL); 398936-Tyuc-Gv Ab (RDL); 217518-Gyvj-MA-O 52kD Ab, IgG (RDL); 027089- Anti-U2 PAID INTERNSHIP Ab (RDL); 235625-Vuwk-T5 PAID INTERNSHIP (Fibrillarin)(RDL) was developed and its performance characteristics determined by [facility]. It has not been cleared or approved by the Food and Drug Administration. CARLITOS, Serum 29 14-82 U/L Histone Antibodies (Antihist one Ab) Reviewed date:06/12/2024 11:38:18 AM Interpretation: Performing Lab:[facility] [place], [address] [facility], Phone - [phone], Director - [facility] Notes/Report: Test(s) 308342-Qdsf-NH-7 Ab (RDL); 877347-Aezo-II-68 Ab (RDL); 310887-Bkxu-ZP Ab (RDL); 901253-Zcjs-YO Ab (RDL); 052855- Anti-SRP Ab (RDL); 469449-Ublz-Ie-9 Ab (RDL); 106022- Uubo-ZNK-0lxuaz Ab (RDL); 618720-Hbrk-QOM-7 Ab (CADM-140)(RDL); 217970-Kvhe-SAU-7 (P140) Ab (RDL); 451333-Blxt-XK/Scl-100 Ab (RDL); 079555-Kbgv-Ei Ab (RDL); 002063-Tlta-DJ-K 52kD Ab, IgG (RDL); 217966- Anti-U2 PAID INTERNSHIP Ab (RDL); 492000-Gabr-P9 PAID INTERNSHIP (Fibrillarin)(RDL) was developed and its performance characteristics determined by [facility]. It has not been cleared or approved by the Food and Drug Administration. Anti-histone Abs 1.1 0.0-0.9 Units Negative <1.0 Weak Positive 1.0 - 1.5 Moderate Positive 1.6 - 2.5 Strong Positive >2.5 Anticardiolip Ab, IgA/G/M, Q n Reviewed date:06/12/2024 11:38:18 AM Interpretation: Performing Lab:[facility], [address] [place] [address], [place], Phone - [phone], Director - Janet Notes/Report: Test(s) 867098-Wzyv-OQ-9 Ab (RDL); 143244-Jfzx-GB-57 Ab (RDL); 496804-Yrzx-DZ Ab (RDL); 708546-Jqev-OM Ab (RDL); 125839- Anti-SRP Ab (RDL); 501009-Ehqt-Jc-3 Ab (RDL); 644498- Pgbj-MFN-1lcvdi Ab (RDL); 015060-Deco-ZZP-8 Ab (CADM-140)(RDL); 634006-Fpyu-KUK-7 (P140) Ab (RDL); 325252-Cxjf-IC/Scl-100 Ab (RDL); 556910-Wbhd-Je Ab (RDL); 494341-Hkgy-YS-I 52kD Ab, IgG (RDL); 135544- Anti-U2 PAID INTERNSHIP Ab (RDL); 139800-Qwqk-D8 PAID INTERNSHIP (Fibrillarin)(RDL) was developed and its performance characteristics determined by [facility]. It has not been cleared or approved by the Food and Drug Administration. Anticardiolipin Ab,IgG,Qn <9 0-14 GPL U/mL Negative: <15 Indeterminate: 15 - 20 Low-Med Positive: >20 - 80 High Positive: >80 Anticardiolipin Ab,IgM,Qn <9 0-12 MPL U/mL Negative: <13 Indeterminate: 13 - 20 Low-Med Positive: >20 - 80 High Positive: >80 Anticardiolipin Ab,IgA,Qn <9 0-11 APL U/mL Negative: <12 Indeterminate: 12 - 20 Low-Med Positive: >20 - 80 High Positive: >80 Beta-2 Glycoprotein I Ab,G,A ,M Reviewed date:06/12/2024 11:38:18 AM Interpretation: Performing Lab:[facility] [place], [address] [facility], [place], Phone - [phone], Director - Janet Notes/Report: Test(s) 515012-Jdtu-TO-5 Ab (RDL); 933742-Ybzc-MM-74 Ab (RDL); 806838-Wpsg-VY Ab (RDL); 621234-Hyhi-JL Ab (RDL); 431321- Anti-SRP Ab (RDL); 362532-Mbmc-Hm-0 Ab (RDL); 849727- Olmp-EWB-1jwqin Ab (RDL); 263534-Rbve-EVU-5 Ab (CADM-140)(RDL); 810034-Ivld-PCX-9 (P140) Ab (RDL); 444528-Gcsc-XI/Scl-100 Ab (RDL); 842689-Vcio-Tc Ab (RDL); 168829-Jpzb-VM-A 52kD Ab, IgG (RDL); 723673- Anti-U2 PAID INTERNSHIP Ab (RDL); 860424-Scco-U6 PAID INTERNSHIP (Fibrillarin)(RDL) was developed and its performance characteristics determined by [facility]. It has not been cleared or approved by the Food and Drug Administration. Beta-2 Glycoprotein I Ab, IgG <9 0-20 GPI IgG units The reference interval reflects a 3SD or 99th percentile interval, which is thought to represent a potentially clinically significant result in accordance with the International Consensus Statement on the classification criteria for definitive antiphospholipid syndrome (APS). J Thromb Haem 2006;4:295-306. Beta-2 Glycoprotein I Ab, IgA <9 0-25 GPI IgA units The reference interval reflects a 3SD or 99th percentile interval, which is thought to represent a potentially clinically significant result in accordance with the International Consensus Statement on the classification criteria for definitive antiphospholipid syndrome (APS). J Thromb Haem 2006;4:295-306. Beta-2 Glycoprotein I Ab, IgM <9 0-32 GPI IgM units The reference interval reflects a 3SD or 99th percentile interval, which is thought to represent a potentially clinically significant result in accordance with the International Consensus Statement on the classification criteria for definitive antiphospholipid syndrome (APS). J Thromb Haem 2006;4:295-306. CCP IgG Antibodies Reviewed date:06/12/2024 11:38:18 AM Interpretation: Performing Lab:[facility] [place], [address] [facility], [place], Phone - [phone], Director - Janet Notes/Report: Test(s) 597569-Mewh-FA-2 Ab (RDL); 384873-Kjml-UB-51 Ab (RDL); 857960-Eehp-ZI Ab (RDL); 864209-Jkwd-SA Ab (RDL); 033125- Anti-SRP Ab (RDL); 779970-Uyye-Hg-3 Ab (RDL); 534348- Rioz-KQS-7kylxu Ab (RDL); 739670-Gwpw-XGG-0 Ab (CADM-140)(RDL); 040259-Bitk-FQQ-6 (P140) Ab (RDL); 942011-Gjud-SP/Scl-100 Ab (RDL); 723162-Bhoo-Vb Ab (RDL); 733449-Nenb-QW-L 52kD Ab, IgG (RDL); 133688- Anti-U2 PAID INTERNSHIP Ab (RDL); 079575-Bgal-H4 PAID INTERNSHIP (Fibrillarin)(RDL) was developed and its performance characteristics determined by [facility]. It has not been cleared or approved by the Food and Drug Administration. Anti-CCP Ab, IgG/IgA 7 0-19 units Negative <20 Weak positive 20 - 39 Moderate positive 40 - 59 Strong positive >59 JURGEN Panel (JURGEN+LIBIA+Scl 70+Sj Liana+SjoSSB) Reviewed date:06/12/2024 11:38:18 AM Interpretation: Performing Lab:[facility] [place], [address] [facility], [place], Phone - [phone], Director - Janet Notes/Report: Test(s) 192248-Grml-VM-0 Ab (RDL); 019466-Ldct-XD-82 Ab (RDL); 329534-Imjy-VA Ab (RDL); 271966-Blqu-VT Ab (RDL); 887199- Anti-SRP Ab (RDL); 869909-Oise-Gi-7 Ab (RDL); 181420- Omgp-QQO-5xwcap Ab (RDL); 649545-Qesz-PUJ-5 Ab (CADM-140)(RDL); 564043-Nikg-NUY-2 (P140) Ab (RDL); 126965-Qkal-FW/Scl-100 Ab (RDL); 328306-Vzpq-Kr Ab (RDL); 104211-Cyxx-MM-L 52kD Ab, IgG (RDL); 685717- Anti-U2 PAID INTERNSHIP Ab (RDL); 732092-Afcl-G8 PAID INTERNSHIP (Fibrillarin)(RDL) was developed and its performance characteristics determined by [facility]. It has not been cleared or approved by the Food and Drug Administration. Test(s) 359702-Bmrg-JD-2 Ab (RDL); 844802-Dykv-JW-77 Ab (RDL); 325193-Zqka-NN Ab (RDL); 061668-Ntjq-DA Ab (RDL); 992515- Anti-SRP Ab (RDL); 482383-Bgcq-Sw-3 Ab (RDL); 754192- Yaiv-SMP-0uhfgy Ab (RDL); 703404-Rtne-NNQ-4 Ab (CADM-140)(RDL); 007746-Sqvp-FWN-7 (P140) Ab (RDL); 778292-Qljr-TW/Scl-100 Ab (RDL); 326678-Rbil-Ta Ab (RDL); 609398-Pedy-TI-R 52kD Ab, IgG (RDL); 304843- Anti-U2 PAID INTERNSHIP Ab (RDL); 757676-Abln-L0 PAID INTERNSHIP (Fibrillarin)(RDL) was developed and its performance characteristics determined by [facility]. It has not been cleared or approved by the Food and Drug Administration. JURGEN by IFA Rfx Titer/Pattern Positive Negative <1:80 Borderline 1:80 Positive >1:80 PAID INTERNSHIP Antibodies <0.2 0.0-0.9 AI Moran Antibodies <0.2 0.0-0.9 AI Antiscleroderma-70 Antibodies <0.2 0.0-0.9 AI Sjogren's Anti-SS-A <0.2 0.0-0.9 AI Sjogren's Anti-SS-B <0.2 0.0-0.9 AI Homogeneous Pattern 1:640 ICAP nom enclature: AC-1 Nucleolar Pattern Speckled Pattern Centromere Pattern Spindle Apparatus Pattern Nuclear Membrane Pattern Midbody Pattern Nuclear Dot Pattern PCNA Pattern Centriole Pattern Note: Pattern Potential Disease Association Homogeneous Systemic Lupus Erythematosus, Drug Induced Systemic Lupus Erythematosus, Chronic Autoimmune hepatitis, Juvenile Idiopathic Arthritis Speckled Sjogren Syndrome, Systemic Lupus Erythematosus, Subacute Cutaneous Lupus, Lupus, Congenital Heart Block, Mixed Connective Tissue Disease, Scleroderma-diffuse, Scleroderma-Autoimmune Myositis Overlap Syndrome, Systemic Lupus Phyupdgdmulft-Hmkxprwhwfa-Gnk oimmune Myositis Overlap Syndrome, Systemic Autoimmune Rheumatic Disease, Undifferentiated Connective Tissue Disease Nucleolar Systemic Sclerosis, Scleroderma-Autoimmune Myositis Overlap Syndrome, Sjogren Syndrome, Raynaud phenomenon, Pulmonary Arterial Hypertension, Systemic Autoimmune Rheumatic Disease, Cancer Centromere Scleroderma-CREST, Limited Cutaneous SSc, Raynaud's Phenomenon, Primary Biliary Cholangitis Nuclear Dot Primary Biliary Cholangitis Nuclear Primary Biliary Cholangitis, Autoimmune Membrane Hepatitis/Liver disease, Systemic Autoimmune Rheumatic Disease, Autoimmune Cytopenias, Linear Scleroderma, Antiphospholipid Syndrome DS DNA-CRITHIDIA IFA W/REFLE X TO T[facility] Reviewed date:06/12/2024 11:38:19 AM Interpretation: Performing Lab:[facility], [address] [place] [address], [place], Phone - [phone], Director - Janet Notes/Report: Test(s) 886046-Owsg-PF-8 Ab (RDL); 283070-Mkol-ZX-21 Ab (RDL); 846937-Anux-BD Ab (RDL); 376379-Pacz-PS Ab (RDL); 689613- Anti-SRP Ab (RDL); 891119-Sqco-Iz-2 Ab (RDL); 526643- Agzk-KUO-2dtdho Ab (RDL); 569119-Fepn-LNC-9 Ab (CADM-140)(RDL); 771778-Vgqn-UDM-3 (P140) Ab (RDL); 875429-Zpnn-OQ/Scl-100 Ab (RDL); 046528-Rxjs-Eg Ab (RDL); 539270-Uczf-QH-Y 52kD Ab, IgG (RDL); 409251- Anti-U2 PAID INTERNSHIP Ab (RDL); 064515-Yskr-U9 PAID INTERNSHIP (Fibrillarin)(RDL) was developed and its performance characteristics determined by [facility]. It has not been cleared or approved by the Food and Drug Administration. dsDNA Crithidia luciliae IFA Negative Negative Specimen Status Report TNP [facility] was unable to collect sufficient specimen to perform the following test(s), and is providing the patient with re-collection instructions. TEST: [id number] Lupus Anticoagulant Comp Myositis panel (lab steff) ne w test code as of 04/2020 Reviewed date:06/12/2024 11:38:19 AM Interpretation: Performing Lab:[facility], [address] [place] [address], [place], Phone - [phone], Director - Janet Notes/Report: Test(s) 887025-Tvbh-CG-2 Ab (RDL); 217589-Njbz-JO-47 Ab (RDL); 057573-Vrlh-XM Ab (RDL); 484108-Rgpb-JH Ab (RDL); 183997- Anti-SRP Ab (RDL); 506201-Tqob-Ki-7 Ab (RDL); 355217- Nrmw-SLG-3fckrh Ab (RDL); 898446-Fjhp-ORW-4 Ab (CADM-140)(RDL); 771823-Plsv-HLK-3 (P140) Ab (RDL); 801875-Tlzo-QZ/Scl-100 Ab (RDL); 956231-Piwj-Sh Ab (RDL); 371731-Dyxr-NR-Q 52kD Ab, IgG (RDL); 150412- Anti-U2 PAID INTERNSHIP Ab (RDL); 478519-Jvyz-N1 PAID INTERNSHIP (Fibrillarin)(RDL) was developed and its performance characteristics determined by [facility]. It has not been cleared or approved by the Food and Drug Administration. Anti-Maureen-1 Ab (RDL) <20 <20 Units Anti-PL-7 Ab (RDL) Negative Negative Anti-PL-12 Ab (RDL) Negative Negative Anti-EJ Ab (RDL) Negative Negative Anti-OJ Ab (RDL) Negative Negative Anti-SRP Ab (RDL) Negative Negative Anti-Mi-2 Ab (RDL) Negative Negative Dlod-TWT-3nedma Ab (RDL) <20 <20 Units Anti-MDA-5 Ab (CADM-140)(RDL) <20 <20 Units Anti-NXP-2 (P140) Ab (RDL) <20 <20 Units Anti-PM/Scl-100 Ab (RDL) <20 <20 Units Anti-Ku Ab (RDL) Negative Negative Anti-SS-A 52kD Ab, IgG (RDL) <20 <20 Units Anti-U1 PAID INTERNSHIP Ab (RDL) <20 <20 Units Anti-U2 PAID INTERNSHIP Ab (RDL) Negative Negative Anti-U3 PAID INTERNSHIP (Fibrillarin)(RDL) Negative Negative Interpretation for Anti-Maureen-1, Fojz-FAX-3xegun, Anti-MDA-5, Anti-NXP-2, Anti-PM/Scl-100, Anti-SS-A 52 kD, Anti-U1 PAID INTERNSHIP: Negative: <20 Weak Positive: 20 - 39 Moderate Positive: 40 - 80 Strong Positive: >80 . ANCA Profile Reviewed date:06/12/2024 11:38:19 AM Interpretation: Performing Lab[facility], [address] [place] [address], Phone - [phone], [facility] Notes/Report: Test(s) 132331-Fulo-UH-2 Ab (RDL); 705482-Vexn-RI-74 Ab (RDL); 138007-Ljza-LW Ab (RDL); 393519-Exzg-GL Ab (RDL); 232879- Anti-SRP Ab (RDL); 032855-Spgf-Kv-3 Ab (RDL); 863683- Ipfi-LFU-9encxt Ab (RDL); 134846-Gbnx-WMT-7 Ab (CADM-140)(RDL); 688709-Vzng-WLO-1 (P140) Ab (RDL); 700475-Obhk-GF/Scl-100 Ab (RDL); 981648-Golh-Yb Ab (RDL); 017970-Dshn-DI-P 52kD Ab, IgG (RDL); 955813- Anti-U2 PAID INTERNSHIP Ab (RDL); 578077-Fqvb-I7 PAID INTERNSHIP (Fibrillarin)(RDL) was developed and its performance characteristics determined by [employer]. It has not been cleared or approved by the Food and Drug Administration. Anti-MPO Antibodies <0.2 0.0-0.9 units Anti-PR3 Antibodies <0.2 0.0-0.9 units Cytoplasmic (C-ANCA) <1:20 Neg:<1:20 titer Perinuclear (P-ANCA) <1:20 Neg:<1:20 titer The presence of positive fluorescence exhibiting P-ANCA or C-ANCA patterns alone is not specific for the diagnosis of Reji's Granulomatosis (WG) or microscopic polyangiitis. Decisions about treatment should not be based solely on ANCA IFA results. The [employer] ANCA [employer] Consensus recommends follow up testing of positive sera with both MA-3 and MPO-ANCA enzyme immunoassays. As many as 5% serum samples are positive only by EIA. Ref. AM J Clin Pathol 1999;111:507-513. Atypical pANCA <1:20 Neg:<1:20 titer The atypical pANCA pattern has been observed in a significant percentage of patients with ulcerative colitis, primary sclerosing cholangitis and autoimmune hepatitis. Lupus Anticoagulant Comprehe ns Reviewed date:06/08/2024 09:37:56 AM Interpretation: Performing Lab:[facility] [place], [address] [place] [address], Phone - [phone], Director - Patel Notes/Report: Dilute Prothrombin Time(dPT) 40.2 0.0-47.6 sec dPT Confirm Ratio 1.16 0.00-1.34 Ratio Thrombin Time 18.8 0.0-23.0 sec PTT-LA 37.3 0.0-43.5 sec dRVVT 38.3 0.0-47.0 sec Lupus Reflex Interpretation Comment: No lupus anticoagulant was detected. CBC With Differential/Platel et Reviewed date:01/26/2025 04:15:56 PM Interpretation: Performing Lab:[facility], [address] [facility], Phone - [phone], Director - Janet Notes/Report: WBC 4.2 3.4-10.8 x10E3/uL RBC 4.53 3.77-5.28 x10E6/uL Hemoglobin 13.9 11.1-15.9 g/dL Hematocrit 42.3 34.0-46.6 % MCV 93 79-97 fL MCH 30.7 26.6-33.0 pg MCHC 32.9 31.5-35.7 g/dL RDW 12.4 11.7-15.4 % Platelets 198 150-450 x10E3/uL Neutrophils 47 Not Estab. % Lymphs 41 Not Estab. % Monocytes 10 Not Estab. % Eos 1 Not Estab. % Basos 1 Not Estab. % Immature Cells Neutrophils (Absolute) 2.0 1.4-7.0 x10E3/uL Lymphs (Absolute) 1.7 0.7-3.1 x10E3/uL Monocytes(Absolute) 0.4 0.1-0.9 x10E3/uL Eos (Absolute) 0.1 0.0-0.4 x10E3/uL Baso (Absolute) 0.0 0.0-0.2 x10E3/uL Immature Granulocytes 0 Not Estab. % Immature Grans (Abs) 0.0 0.0-0.1 x10E3/uL NRBC Hematology Comments: Comp. Metabolic Panel (14) Reviewed date:01/26/2025 04:16:02 PM Interpretation: Performing Lab:[facility] [place], [address] [facility], Phone - [phone], Director - Ricchifranciscoi Notes/Report: Glucose 88 70-99 mg/dL BUN 11 6-24 mg/dL Creatinine 0.65 0.57-1.00 mg/dL eGFR 114 >59 mL/min/1.73 BUN/Creatinine Ratio 17 9-23 Sodium 140 134-144 mmol/L Potassium 4.2 3.5-5.2 mmol/L Chloride 103 96-106 mmol/L Carbon Dioxide, Total 27 20-29 mmol/L Calcium 9.3 8.7-10.2 mg/dL Protein, Total 6.9 6.0-8.5 g/dL Albumin 4.4 3.9-4.9 g/dL Globulin, Total 2.5 1.5-4.5 g/dL Bilirubin, Total 0.5 0.0-1.2 mg/dL Alkaline Phosphatase 58 44-121 IU/L AST (SGOT) 16 0-40 IU/L ALT (SGPT) 13 0-32 IU/L REASON FOR REFERRAL No Information MEDICATIONS Medication SIG (Take, Route, Frequency, Duration) Notes Start Date End Date Status gabapentin 100 mg 1 cap(s) orally 3 times a day Active Fish Oil Active ZyrTEC 10 mg 1 tab(s) orally once a day Active Hydroxychloroquine Sulfate 2 00 mg 1 tab(s) orally once a day Active SOCIAL HISTORY Sex Assigned At : Social History Observation Description Sex Assigned At Unknown PROBLEMS Problem Type ICD Code Onset Dates Problem Status W/U Status Risk SNOMED Code Notes Problem JURGEN positive (R76.8) Active confirmed 973486362 Problem Rash (R21) Active confirmed 351712309 Problem Myalgia (M79.10) Active confirmed 59917864 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 [address] [place] [address], [address] [phone] 05/28/2024 Corrine Scheidemantel JURGEN positive R76.8 ; Myalgia M79.10 and Rash R21 [facility] [address] [place] [address], [address] [id number] 06/25/2024 Corrine Scheidemantel JURGEN positive R76.8 ; Rash R21 and Myalgia M79.10 [facility] [address] [place] [address], [facility] [address] [place], [place] [phone] 09/25/2024 Neeru Medeiros JURGEN positive R76.8 ; Rash R21 ; Myalgia M79.10 and Other penitentiary (current) drug therapy Z79.899 [facility] [address] [place] [address], [facility] [address] [place], [place] [phone] 01/22/2025 Corrine Scheidemantel JURGEN positive R76.8 ; Myalgia M79.10 ; Rash R21 and Other penitentiary (current) drug therapy Z79.899 [facility] [address] [facility], [facility] [address] [place], [place] [phone] 05/27/2024 Neeru Medeiros [facility] [address] [facility], [facility] [address] [place], [place] [phone] 06/08/2024 Neeru Medeiros [facility] [address] [facility], [address] [id number] 06/25/2024 Neeru Medeiros [facility] [address] [facility], [address] [id number] 06/25/2024 Neeru Medeiros [facility] [address] [facility], [address] [id number] 06/25/2024 Neeru Medeiros ASSESSMENTS Encounter Date Diagnosis Assessment Notes Treatment Notes Treatment Clinical Notes 05/28/2024 JURGEN positive (ICD-10 - R76.8) 05/28/2024 Myalgia (ICD-10 - M79.10) 06/25/2024 JURGEN positive (ICD-10 - R76.8) 06/25/2024 Rash (ICD-10 - R21) 09/25/2024 JURGEN positive (ICD-10 - R76.8) 09/25/2024 Rash (ICD-10 - R21) 01/22/2025 JURGEN positive (ICD-10 - R76.8) 01/22/2025 Myalgia (ICD-10 - M79.10) 05/28/2024 Rash (ICD-10 - R21) 06/25/2024 Myalgia (ICD-10 - M79.10) 09/25/2024 Myalgia (ICD-10 - M79.10) 01/22/2025 Rash (ICD-10 - R21) 09/25/2024 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 [facility], [address], [place], [place], [phone], Insurance Providers Payer Name Payer Address Payer Phone Subscriber Number Group Number Insured Name Patient Relationship to Insured Coverage Start Date Coverage End Date Osiris Weir [address] [place] [address] [id number] Álvaro Amaya Spouse - patient is the spouse of the insured 4 MEDICAL (GENERAL) HISTORY Medical History History ICD Code bruises easily blurred vision fever, low grade tension headaches dizziness indigestion abnormal pap smear rapid heartbeat constipation frequent urination [facility]CCA Surgical History Surgery Date(Month/Year) skin cancer removed 2013 breast implant removal 2019 uterine ablation 2019
--- OUTSIDE RECORDS SUMMARY | 2025-03-08 14:54 | XMS_ITS | Clinical Summary ---
Author Organization [facility] Address [facility] [place] [address] Care Team Providers Care Animal Ride Manager Name Role Phone Jenn Covington MD Primary Care Provider Social History Tobacco Use Types Packs/Day Years Used Date Smoking Tobacco: Never Assessed Comments Unknown Sex and Gender Information Value Date Recorded Sex Assigned at Not on file Legal Sex Female 7:40 PM CDT Gender Identity Not on file Sexual Orientation Not on file Plan of Treatment Health Maintenance Due Date Last Done Comments Cervical Cancer Screening Pa p Smear (Age 30 to 64) Every 3 Years 1985 Annual Physical 01/17/1988 Hepatitis C 2003 DTaP, Tdap and Td Vaccines ( 1 - Tdap) 01/17/2004 Hepatitis B Vaccines (1 of 3 - 19+ 3-dose series) 01/17/2004 Cervical Cancer Screening Pa p with HPV Testing (Age 30 to 64) Every 5 Years 2015 Cervical Cancer Screening with HPV 2015 COVID-19 Vaccine (2023-2 5 season) 2024 Mammogram Screening 2025 HPV Vaccines Aged Out No longer eligi ble based on patient's age to complete this topic Meningococcal B Vaccine Aged Out No l onger eligible based on patient's age to complete this topic Meningococcal Vaccine Aged Out No renita karlene eligible based on patient's age to complete this topic Pneumococcal Vaccine: Pediat rics (0 to 5 Years) and At-Risk Patients (6 to 49 Years) Aged Out No longer eligible b ased on patient's age to complete this topic RSV Immunizations Under 20 Months Aged Out No longer eligible based on patient's age to complete this topic Insurance [employer] Care Teams Animal Ride Manager Relationship Specialty Start Date End Date Jenn Covington MD [address] [place] [address] PCP - General FAMILY PRACTICE 02/08/21
--- OUTSIDE RECORDS SUMMARY | 2025-03-08 14:54 | XMS_ITS | CONTINUITY OF CARE DOCUMENT ---
Author Name liliana ford Address Unknown Organization [facility] Address [address] [place] [address] [address] [place] [address] Phone [phone] Care Team Providers Care Wax Specialist Name Role Phone liliana ford Unavailable Unavailable INSURANCE PROVIDERS Payer name Policy type / Coverage type [place] [employer] party ID [facility] [id number]
--- OUTSIDE RECORDS SUMMARY | 2025-03-08 14:54 | XMS_ITS ---
Author Organization [facility] Address [address] [facility] [address] [facility] [address] [place], [place] [id number] Care Team Providers Care Material Liaison Name Role Phone ESPARZA EMMA Primary Care Provider UnavailNeeru Chery Unavailable [phone] Gerald Corrine Unavailable [phone] ALLERGIES No Known Allergies RESULTS Component Value Reference Range Notes CBC With Differential/Platel et Reviewed date:01/26/2025 04:15:56 PM Interpretation: Performing Lab:[facility] [place], [address] [facility], [place], Phone - [phone], Director - Janet Notes/Report: WBC 4.2 3.4-10.8 [...] (14) Reviewed date:01/26/2025 04:16:02 PM Interpretation: Performing Lab:[facility] [place], [address] [facility], [place], Phone - [phone], Director - [facility] Notes/Report: Glucose 88 70-99 mg/dL BUN 11 [...] ALT (SGPT) 13 0-32 IU/L REASON FOR VISIT 4 mo f/u MEDICATIONS Medication SIG (Take, Route, Frequency, Duration) Notes Start Date End Date Status gabapentin 100 mg 1 cap(s) orally 3 times a day Active Fish Oil Active ZyrTEC 10 mg 1 tab(s) orally once a day Active Hydroxychloroquine Sulfate 2 00 mg 1 tab(s) orally once a day Active VITAL SIGNS BMI 19.85 kg/m2 01/22/2025 Blood pressure systolic 92 mm Hg 01/23/20 25 Blood pressure diastolic 71 mm Hg 025 Heart Rate 73 /min 01/22/2025 Height 66 in 01/22/2025 Weight 123 lbs 01/22/2025 Encounters Encounter Location Date Provider Diagnosis [facility] [address] 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, [address], [place], [place], [phone], Progress Notes * Examination Category Sub-Category Detail [...] Sub-Category Detail Notes MDHAQ Summary Function (0-10):: 0 Pain (0-10):: 2.5 Patient Global Assessment of Disease Activity (0 -10):: 0 RAPID3 Score (0-30):: 2.5 Physician Global Assessment of Disease Activity (0-10):: 2 Prognosis Very Good w/tx Erosive Damage No
--- OUTSIDE RECORDS SUMMARY | 2025-03-08 14:54 | XMS_ITS | Clinical Summary ---
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 Gender Identity Not on file Sexual Orientation Not on file Plan of Treatment Health Maintenance Due Date Last Done Comments Hepatitis C Virus (HCV) Screening 1985 TdaP Immunization 1985 Hepatitis B Immunization (1 of 3 - 19+ 3-dose series) 01/17/2004 SARS-COV-2 Immunization ( - 2023- season) 2024 Influenza Immunization (Seas on Ended) 2025 Respiratory Syncytial Virus (RSV) Immunization (Adult) (1 - 1-dose 75+ series) 01/17/2060 Meningococcal Immunization (ACWY) Aged Out No longer eligible based on patient's age to complete this topic Pneumococcal Immunization Combined Aged Out No longer eligible based on patient's age to complete this topic Rotavirus Immunization Aged Out No lo nger eligible based on patient's age to complete this topic
== END 2025-03-08 14:51 | disposition home or self-care (01) ==
LOC: ANHIMG 14:51
PROVIDERS: PCP Family Medicine; Visit Provider Obstetrics & Gynecology
DX: Z12.31 Encounter for screening mammogram for malignant neoplasm of breast (principal)
CPT/HCPCS: 77063; 77067

== ENCOUNTER 2025-06-22 12:49 | Outpatient (CLI) | payer BC, SELFPAY ==
--- NOTE | ~2025-06-22 | CT_ITS ---
EXAMINATION: CT brain wo con DATE: 06/22/2025 13:03 INDICATION: Acute posttraumatic headache TECHNIQUE: Computed tomography (CT) of the head was performed without intravenous contrast. Sagittal and coronal reconstructions were performed. The mA was adjusted according to patient size. Iterative reconstruction technique was employed. The dose-length product was 605.33 mGy-cm. COMPARISON: Brain MR dated 07/18/2023 FINDINGS: No fracture. No acute intracranial hemorrhage, acute infarction or abnormal extra axial fluid collection. Ventricles are normal and symmetric. No mass/mass effect. The orbits, paranasal sinuses and mastoid air cells are normal. IMPRESSION: 1. Normal head CT. No fracture or acute intracranial process. Reviewed, dictated and finalized at location A.
--- OUTSIDE RECORDS SUMMARY | 2025-06-22 13:04 | XMS_ITS | Clinical Summary ---
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
--- OUTSIDE RECORDS SUMMARY | 2025-06-22 13:04 | XMS_ITS | Clinical Summary ---
Author Organization [facility] Address [address] [place] [address] Care Team Providers Care Dock Loader Name Role Phone Jenn Covington MD Primary [...] of 3 - 19+ 3-dose series) 01/17/2004 HPV Vaccines (1 - 3-dose SCD M series) 01/17/2012 Cervical Cancer Screening Pa p with HPV Testing (Age 30 to 64) Every 5 Years 2015 Cervical Cancer Screening with HPV 2015 COVID-19 Vaccine (2023-2 5 season) 2024 Mammogram Screening 2025 Meningococcal B Vaccine Aged Out No l [...] complete this topic Insurance [employer] Care Teams Dock Loader Relationship Specialty Start Date End Date Jenn Covington MD [address] [place] [address] PCP - General FAMILY PRACTICE 02/08/21
== END 2025-06-22 12:50 | disposition home or self-care (01) ==
LOC: ANHIMG 12:55
PROVIDERS: PCP Family Medicine; Visit Provider Student in an Organized Health Care Education/Training Program
DX: G44.319 Acute post-traumatic headache, not intractable (principal)
CPT/HCPCS: 70450